=== PATIENT | male | born 1980 | race Caucasian/White ===

== ENCOUNTER 2024-05-02 11:11 | Emergency (ER) | payer BC, SELFPAY ==
[2024-05-02 11:34] VITALS: BP 144/106
--- NOTE | 2024-05-02 11:42 | ED.PDOC.TRB ---
ED Provider Triage
-
Patient seen by provider in Triage?: Seen in Triage
44-year-old male present department for evaluation of right-sided hip pain that has been off and on for weeks. Went to primary care provider and got a prescription to have an MRI done but this was unable to be completed until May. Yesterday
played a round of golf which she states overall has not actually bothered his hip since this started and this morning was unable to put pressure on his right hip due to the pain. States pain is a little bit improved presently. No other trauma.
Patient is otherwise in no acute distress and well-appearing. X-ray of the right hip ordered.
--- NOTE | 2024-05-02 12:30 | ED.GENMED ---
History of Present Illness
General
Chief Complaint: Musculo-Skeletal Complaint
Source: patient
Exam Limitations: none
Time Seen by Provider: 05/02/24 12:12
Nursing documentation reviewed up to this point in time: agreed with
Travel History
Have you had any contact with someone who has COVID-19?: No
Do you have any symptoms of coronavirus? Fever > 100 degrees, chills, cough, shortness of breath, sore throat, loss of taste or smell, muscle aches, or headache?: No
History of Present Illness
History of Present Illness:
44-year-old male presents today complaining right hip pain. Patient reports he started a new job 2 months ago which requires a lot of squatting. Since then he has had a lot of right hip pain which seems to become worse with certain positions. He
had no prior history of hip pain prior to starting this job. Patient denies any actual injury. He was seen by his family doctor who ordered an MRI but it is not scheduled until May . Patient reports it was worse this morning after coughing
yesterday. He has been taking ibuprofen that relief. He presented to the ER because he could not hardly put any weight on his hip this morning. He denies any fever chills redness to the area.
Past History
Past History
ED Past Medical History: GERD and Hypercholesterolemia
ED Past Surgical History: Other (Right inguinal hernia repair.)
Social History
Tobacco: Smoker (3-4 cigarettes/week)
Alcohol: Occasional
Drug: Marijuana (cannabus vape)
Personal:
Living: with family
Employment: Employed
Review of Systems
Review of Systems
Allergies reviewed?: Yes
All Other Systems: ROS reviewed and negative except as documented in HPI and ROS
Constitutional: Reports no symptoms; Denies fever, fatigue or chills
Musculoskeletal: Reports other (right hip pain )
Skin: Reports no symptoms
Neurological: Reports no symptoms
Psychiatric: Reports no symptoms
Phy Exam
General Physical Exam
General Presentation: no apparent distress
General age: appears stated age
General Skin: warm and dry
General Habitus: normal
General Mental: alert
General Hydration: appears well hydrated
Neurological Exam
Neurological Exam: alert and oriented x3
Musculoskeletal Exam
Musculoskeletal Exam: other (Normal inspection to right hip with no erythema full range of motion mild discomfort with full abduction normal strength. Strong distal pulses no swelling)
Skin Exam
Skin Exam: normal color and warm/dry
Psychiatric Exam
Psychiatric Exam: normal mood/affect
Course
Orders/Labs/Results
Orders:
Orders
05/02/24 11:39
CR Hip - RT w/wo Pel 2-3 Vw* Urgent
Comment:
Reason For Exam: right hip pain
Include a pelvis x-ray?: Yes
05/02/24 13:23
Ketorolac [Toradol] 30 mg IM NOW STA
Lidocaine [Lidocaine 4% Patch] 1 patch TOPICAL NOW STA
05/02/24 13:27
Vital Signs- Treatment ONCE
Frequency: Once
Vital Signs
Initial and Last Documented VS:
Initial Vital Signs
Temp Pulse Resp BP Pulse Ox
98.0 F 76 16 144/106 98
05/02/24 11:34 05/02/24 11:34 05/02/24 11:34 05/02/24 11:34 05/02/24 11:34
Last Documented Vital Signs
Temp Pulse Resp BP Pulse Ox
98.0 F 61 18 152/89 98
05/02/24 11:34 05/02/24 13:36 05/02/24 13:36 05/02/24 13:36 05/02/24 13:36
MDM/Problems Addressed
Differential Diagnosis Includes:
Not limited to tendinitis, overuse syndrome
MDM/Problems Addressed:
Symptoms are consistent with most likely tendinitis. Patient with no trauma no evidence of infection no acute findings on x-ray. Patient has an MRI scheduled but not in May. Patient given a dose of IM Toradol here in the ER this was ordered by
his family doctor. Will DC with instructions to take ibuprofen 60 mg every 8 hours with food alternating with Tylenol for the next several days. Also sent prescription for lidocaine patch. Will have patient follow-up with orthopedics
*Radiology
Radiology exam reviewed: preliminary read by ED provider
*Pulse Oximetry
Patient hypoxic: no
*Critical Care Note
Total Time (30-74mins, 75-104mins- exclusive of procedures): Not Applicable
ED Attending Note
-
Portions of this chart may have been created with voice recognition software.� Occasional wrong word or��sound alike� substitutions may have occurred due to the inherent limitations of voice recognition software.
Discharge Plan
Departure
Patient Disposition: Home (Routine Discharge)
Date of Disposition: 05/02/24
Time of Disposition: 13:28
Patient with high blood pressure during this ER visit?: Yes
Covid-19: Not Applicable
Discharge Problem:
Tendonitis
Instructions: Overuse Injuries (DC)
Prescriptions:
New
lidocaine 5 % adhesive patch,medicated
1 patch topical DAILY Qty: 15 0RF
Rx Instructions:
remove after 12 hrs
Referrals:
Karissa Jay DO [Family Provider] -
Jung Moreno MD [Active] -
Activity Restrictions/Additional Instructions:
60mg of ibuprofen every 8 hours alternating with Tylenol 650 mg orally every 6 hours. A prescription for lidocaine patch was sent to your pharmacy take as directed. Call orthopedics today for an appointment as soon as possible for further
evaluation return if any worsening of symptoms
Interventions
Interventions:
*ED COVID-19 Vaccine History Last Done: 05/02/24 11:34
*Nursing Disposition Last Done: 05/02/24 13:38
ED-Musculoskeletal Assessment Last Done: 05/02/24 13:36
Discharge Date and Time
Discharge Date/Time: 05/02/24 13:38
Print Language: [id number]
[2024-05-02] MEDS: TORADOL 30 MG IM (13:33)
[2024-05-02] MEDS: LIDOCAINE 4% PATCH 1 PATCH TOPICAL (13:33)
[2024-05-02 13:36] VITALS: BP 152/89
== END 2024-05-02 13:38 | disposition home or self-care (01) ==
LOC: EMR 11:11
PROVIDERS: EMERGENCY PHYSICIAN Emergency Medicine; FAMILY PHYSICIAN Family Medicine
DX: M76.9 Unspecified enthesopathy, lower limb, excluding foot (principal); E78.00 Pure hypercholesterolemia, unspecified; K21.9 Gastro-esophageal reflux disease without esophagitis; F17.210 Nicotine dependence, cigarettes, uncomplicated; F12.90 Cannabis use, unspecified, uncomplicated
CPT/HCPCS: 99284; 96372; 73502